=== PATIENT | male | born 1940 | race Caucasian/White ===

== ENCOUNTER → 2017-07-04 | Day surgery (SDC) | payer MEDICARE, OTHER ==
[~2017-07-04] MED LIST: BRIMONIDINE 0.2% OPHTH DROPS RIGHT_EYE ONE; DEXAMETHASONE 0.1% OPHTH SOL 1 DROP RIGHT_EYE ONE; LIDOCAINE 1% PF 2 ML AMP INJ ONE; MIDAZOLAM INJ 2 MG/2 ML VIAL ONE; PROPARACAINE 0.5% OPHTH SOL 15 ML BTTL ONE; TOBRAMYCIN SULF 0.3 % OPHT SOL 1 DROP RIGHT_EYE ONE; TROP 1%/CYCLOPEN 1%/PHENYL 2% DROPS ONE
[2017-07-04] MEDS: TOBRAMYCIN SULF 0.3 % OPHT SOL 1 DROP RIGHT_EYE ONE ×2 (12:20→13:08)
[2017-07-04] MEDS: PROPARACAINE 0.5% OPHTH SOL 15 ML BTTL RIGHT_EYE ONE ×2 (12:20→12:52)
[2017-07-04 14:12] VITALS: BP 128/83; TEMP 97.2; O2SAT 97
== END ==
LOC: AMB 05:48
PROVIDERS: ATTEND Ophthalmology
DX: H25.11 Age-related nuclear cataract, right eye (principal); I10 Essential (primary) hypertension; I25.10 Atherosclerotic heart disease of native coronary artery without angina pectoris; Z87.891 Personal history of nicotine dependence; Z88.0 Allergy status to penicillin; Z88.8 Allergy status to other drugs, medicaments and biological substances; Z85.46 Personal history of malignant neoplasm of prostate; Z79.82 Long term (current) use of aspirin; Z79.899 Other long term (current) drug therapy
CPT/HCPCS: 00142; 66984; J2250

== ENCOUNTER 2017-07-18 05:40 | Day surgery (SDC) | payer MEDICARE, OTHER ==
[2017-07-18] MEDS ORDERED: PROPARACAINE 0.5% OPHTH SOL 15 ML BTTL ONE (05:51)
[2017-07-18] MEDS ORDERED: TROP 1%/CYCLOPEN 1%/PHENYL 2% DROPS ONE (05:51)
[2017-07-18] MEDS ORDERED: MIDAZOLAM INJ 2 MG/2 ML VIAL ONE (07:12)
[2017-07-18] MEDS: TOBRAMYCIN SULF 0.3 % OPHT SOL 1 DROP LEFT_EYE ONE ×2 (09:50→10:48)
[2017-07-18] MEDS ORDERED: PROPARACAINE 0.5% OPHTH SOL 15 ML BTTL LEFT_EYE ONE (10:37)
[2017-07-18] MEDS ORDERED: LIDOCAINE 1% PF 2 ML AMP INJ ONE (10:47)
[2017-07-18] MEDS ORDERED: DEXAMETHASONE 0.1% OPHTH SOL 1 DROP LEFT_EYE ONE (10:47)
[2017-07-18] MEDS ORDERED: BRIMONIDINE 0.2% OPHTH DROPS LEFT_EYE ONE (10:48)
[2017-07-18 15:12] VITALS: O2SAT 98
[2017-07-18 15:24] VITALS: BP 128/79; TEMP 97.5
== END 2017-07-18 11:25 | disposition home or self-care (01) ==
LOC: AMB 05:40
PROVIDERS: ATTEND Ophthalmology
DX: H25.12 Age-related nuclear cataract, left eye (principal); I10 Essential (primary) hypertension; J44.9 Chronic obstructive pulmonary disease, unspecified; Z79.1 Long term (current) use of non-steroidal anti-inflammatories (NSAID); Z79.82 Long term (current) use of aspirin; Z79.899 Other long term (current) drug therapy
CPT/HCPCS: 00142; 66984; J2250